=== PATIENT | female | born 1970 | race Caucasian/White ===

== ENCOUNTER → 2020-11-12 11:02 | Outpatient (CLI) | payer OTHER, SELFPAY ==
--- NOTE | ~2020-11-12 | DEXA_ITS ---
Bone Density Report Name: Giana Wilkerson Age: 49 Sex: Female Ethnicity: White Date of : 1970 Indication: postmenopausal; hysterectomy; Referring Provider: Dawna, Sumi Study: Bone densitometry was performed. Exam Date: November 12, 2020 Accession number: [id number] Bone Density: Region BMD T-score Z-score Classification AP Spine (L1-L4) 0.878 -1.5 -0.8 Osteopenia Femoral Neck (Left) 0.622 -2.0 -1.3 Osteopenia Total Hip (Left) 0.880 -0.5 -0.1 Normal Femoral Neck (Right) 0.726 -1.1 -0.4 Osteopenia Total Hip (Right) 0.939 0.0 0.4 Normal Total Hip Mean 0.910 -0.3 0.2 Normal World Health Organization criteria for BMD impression classify patients as: Normal (T-score at or above -1.0), Osteopenia (T-score between -1.0 and -2.5), or Osteoporosis (T-score at or below -2.5). 10-year Fracture Risk: FRAX not reported because: Treated for osteoporosis Clinical Information Provided by Patient: Is being treated for osteoporosis Has used the following medications: Evista (i.e. raloxifene), Calcium Has the following medical conditions: Hysterectomy Patient maximum height was 62 Menopause Age: 40 No regular weight bearing exercise Drinks caffeinated beverages Onset of menses at age 13 Number of children 2 Impression: The patient has low bone mass, based on the Left Femoral Neck T-score. Discussion: It is important to ask patients whether they are taking their medications and to encourage continued and appropriate compliance with their osteoporosis therapies to reduce fracture risk. It is also important to review their risk factors and encourage appropriate calcium and vitamin D intakes, exercise, fall prevention and other lifestyle measures. Follow-Up: Consider a repeat BMD and Vertebral Fracture Assessment (VFA) exam in 2 years or sooner if medically necessary, to reassess this patient's status. Reported by: LEAH on 11/12/2020 11:20:00 AM. Reviewed, dictated and finalized at location [facility] LONGORIA
== END ==
PROVIDERS: PCP Registered Nurse; Visit Provider Registered Nurse
DX: M85.88 Other specified disorders of bone density and structure, other site (principal); M85.852 Other specified disorders of bone density and structure, left thigh; M85.851 Other specified disorders of bone density and structure, right thigh
CPT/HCPCS: 77080

== ENCOUNTER → 2021-04-25 08:54 | Outpatient (CLI) | payer OTHER, SELFPAY ==
--- NOTE | ~2021-04-25 | XR_ITS ---
EXAMINATION: XR chest 2V 04/25/2021 09:16 INDICATION: Aspiration pneumonia PROCEDURE: 2 view chest COMPARISON: 06/25/2016 FINDINGS: The lungs are clear. The cardiomediastinal silhouette is within normal limits. There are no pleural effusions. There is no pneumothorax suspected. IMPRESSION: 1: NO ACUTE CARDIOPULMONARY DISEASE. Reviewed, dictated and finalized at location A. H ADJUSTER
== END ==
PROVIDERS: PCP Registered Nurse; Visit Provider Registered Nurse
DX: J69.0 Pneumonitis due to inhalation of food and vomit (principal)
CPT/HCPCS: 71046

== ENCOUNTER 2021-06-22 11:08 | Emergency (ER) | payer OTHER, SELFPAY ==
[2021-06-22 11:47] VITALS: BP 120/69; PULSE 83; RESP 16; TEMP 37.1; O2SAT 99
--- NOTE | 2021-06-22 12:04 | ED.URI ---
HPI - URI/Sore Throat General Chief Complaint: Upper Respiratory Infection Stated Complaint: Fever,Sore Throat,Fatigue Time Seen by Provider: 06/22/21 12:05 Source: patient and RN notes reviewed Mode of arrival: ambulatory Limitations: no limitations History of Present Illness HPI Narrative: 50-year-old female presented for complaint of headache, body ache, fever and sore throat for 2 days. Endorses fever of 100-102. Endorses occasional nonproductive cough. Denies chest pain, shortness of breath, wheezing, nausea, vomiting, diarrhea. She is not vaccinated for Covid. She has been taking Tylenol for symptoms. Related Data Home Medications Medication Instructions Recorded Confirmed doxycycline hyclate 06/22/21 escitalopram oxalate mg 06/22/21 raloxifene [Evista] 60 mg PO DAILY 06/22/21 06/22/21 Allergies Allergy/AdvReac Type Severity Reaction Status Date / Time Sulfa (Sulfonamide Allergy Mild Rash Verified 06/22/21 11:38 Antibiotics) amoxicillin Allergy Unknown Diarrhea Verified 06/22/21 11:38 morphine AdvReac Nausea and Verified 06/22/21 11:38 Vomiting Review of Systems Review of Systems: CONSTITUTIONAL: Endorses malaise, chills, sweats, fever. EYES: Denies visual changes, redness, or discharge. ENT: Reports rhinorrhea, congestion, sinus pain, otalgia and sore throat. CARDIOVASCULAR: Denies chest pain, palpitations, or edema. RESPIRATORY: Reports cough, post nasal drainage. Denies dyspnea. GASTROINTESTINAL: Denies abdominal pain, nausea, vomiting, diarrhea SKIN: Denies rash or itching. MUSCULOSKELETAL: Denies myalgia. NEUROLOGIC: Denies headache. PMFSH Comments At time of signature, I have reviewed and agree with nursing past medical, surgical, social and family history unless otherwise noted. Please see nursing chart for further information. There is no relevant family history pertinent to the presenting complaint Exam Narrative: GENERAL: Ill-appearing, nontoxic no acute distress. HEAD: Normocephalic EYES: PERRLA, conjunctivae clear ENT: Mucous membranes moist. TM pearly yañez with dull light reflex bilaterally; no tragal tenderness. Oropharynx erythematous without lesions. Tonsils without exudate, no drooling, no hoarseness, no trismus, uvula midline. NECK: Supple. No lymphadenopathy CHEST: Clear to auscultation, breath sounds equal. No wheezing, rhonchi, rales, or stridor. No respiratory distress, speaks in full sentences. HEART: Regular rate and rhythm. No murmur heard. SKIN: Warm, dry, no rash. NEURO: Alert and oriented x3. PSYCH: Normal mood and affect Course Course Emergency Course: Covid positive Patient is aware of diagnosis, understands and agrees to treatment plan. Anticipatory guidance given. Patient agrees to follow-up as directed and is aware of reasons to seek care at the emergency department. Portions of this record may have been created with voice recognition software Level of Care: Express Care Visit Vital Signs Vital signs: Vital Signs Temperature 98.8 F 06/22/21 11:47 Pulse Rate 83 06/22/21 11:47 Respiratory Rate 16 06/22/21 11:47 Blood Pressure 120/69 06/22/21 11:47 Pulse Oximetry 99 06/22/21 11:47 Temperature 98.8 F 06/22/21 11:47 Pulse Rate 83 06/22/21 11:47 Respiratory Rate 16 06/22/21 11:47 Blood Pressure 120/69 06/22/21 11:47 Pulse Oximetry 99 06/22/21 11:47 Reviewed MDM - URI/Sore Throat Differential Diagnosis Differential diagnosis: Likely upper respiratory infection, viral infection and pharyngitis Lab Data Attestation: I reviewed the patient's lab results. Labs: Strep Screen Presumptive Negative *(Reference Range: Negative)* Discharge Plan Discharge Clinical Impression: COVID-19 Patient Disposition: Home, Self-Care Condition: Stable Instructions: Antibiotic Form Additional Instructions: Your rapid COVID test was positive today. The follow
== END 2021-06-22 12:27 | disposition home or self-care (01) ==
PROVIDERS: Emergency Provider Nurse Practitioner Family; PCP Registered Nurse
DX: U07.1 COVID-19 (principal); Z98.84 Bariatric surgery status
CPT/HCPCS: 87081; 87426; 87880; 99213; C9803; G0463

== ENCOUNTER 2022-02-23 10:36 | Emergency (ER) | payer OTHER, SELFPAY ==
[2022-02-23 11:12] VITALS: BP 120/72; PULSE 63; RESP 16; TEMP 36.4; O2SAT 100
--- NOTE | 2022-02-23 11:52 | ED.GENADULT ---
HPI - General Adult General Chief complaint: Wound/Laceration Stated complaint: laceration History of Present Illness HPI narrative: Mrs Wilkerson is a pleasant 51 y/o female. PMHx GERD, OA. [facility] with acute complaints of LT thumb tip laceration, accidentally cut with vegetable knife immediately [employer]. She tells me that she was cutting a Zucchini at home, RT hand dominant, and her RT hand slipped causing left sided laceration. No bony pain or trauma. Not on any active anticoagulation regimen, bleeding controlled. Non-diabetic. Last Tetanus was updated 2 months ago according to client. No concern for FB has been identified. She is without additional acute c/o upon PE. Related Data Home Medications Medication Instructions Recorded Confirmed escitalopram oxalate 20 mg tablet 20 mg PO DAILY 06/22/21 02/23/22 raloxifene 60 mg tablet (Evista) 60 mg PO DAILY 06/22/21 02/23/22 Allergies Allergy/AdvReac Type Severity Reaction Status Date / Time Sulfa (Sulfonamide Allergy Mild Rash Verified 02/23/22 11:40 Antibiotics) amoxicillin Allergy Unknown Diarrhea Verified 02/23/22 11:40 morphine AdvReac Nausea and Verified 02/23/22 11:40 Vomiting NSAIDS (Non-Steroidal AdvReac Other Verified 02/23/22 11:40 Anti-Inflamma Review of Systems Review of Systems: SKIN: Laceration LT thumb. MUSCULOSKELETAL: Denies joint pain. NEUROLOGIC: Denies numbness, or focal weakness. REMAINING ROS REVIEWED: NEGATIVE. Exam Narrative: GENERAL: This is a well-nourished, well-developed adult, in no apparent distress. HEAD: normocephalic EYES: Sclera clear/white. CARDIOVASCULAR: Regular rate and rhythm. Radial pulses strong, Cap refill brisk all digits LUE. SPO2 99& on affected digit. RESPIRATORY: Clear to auscultation. GASTROINTESTINAL: Abdomen soft. SKIN: With 1 cm linear laceration to LT thumb tip pad. No nail involvement. No FB has been identified. Bleeding is controlled. NEURO: No focal neurologic deficits. Good sensation and discrimination LUE. EXTREMITIES: Negative. No LUE/LT digit bony tenderness or deformity. ROM intact. Able to flex and extend at all sites on affected digit, No laxity. Course Course Level of Care: Express Care Visit Vital Signs Vital signs: Vital Signs Temperature 36.4 C 02/23/22 11:12 Pulse Rate 63 02/23/22 11:12 Respiratory Rate 16 02/23/22 11:12 Blood Pressure 120/72 02/23/22 11:12 Pulse Oximetry 100 02/23/22 11:12 Oxygen Delivery Room Air 02/23/22 11:12 Temperature 36.4 C 02/23/22 11:12 Pulse Rate 63 02/23/22 11:12 Respiratory Rate 16 02/23/22 11:12 Blood Pressure 120/72 02/23/22 11:12 Pulse Oximetry 100 02/23/22 11:12 Oxygen Delivery Room Air 02/23/22 11:12 Procedures Laceration Laceration 1: Date: 02/23/22 Time: 12:00 Site: upper extremity (LT thumb ) Side (If applicable): left Size (cm): 1 Description: linear, clean and other (No nail involvement. ) Depth: simple, single layer Local Anesthetic: lidocaine 1% (0.5 ml) Pre-repair: wound explored, irrigated and other (No FB. ) ====== Skin Level ====== Skin layer closed with: nylon Size (cm): 3-0 Number of sutures: 3 Technique: simple, interrupted ====== Subcutaneous Layer ====== ====== Muscle Layer ====== ====== Tendon Layer ====== Dressing: Client tolerated procedure well, no issues. Covered w/sterile dry gauze and Kerlix. Medical Decision Making MDM Narrative Medical decision making narrative: -No neurovascular deficits. SPO 2 99 % on affected digit. -RT Hand Dominant, non-diabetic, not on anticoagulants, bleeding controlled. -No nail involvement, No FB. -Simple single layer laceration repair has been completed w/o difficulty-Refer to procedure notes. -DC to home stable. -OP Wound & Suture care has been reviewed. -PC
== END 2022-02-23 12:16 | disposition home or self-care (01) ==
PROVIDERS: Emergency Provider Nurse Practitioner Adult Health; PCP Registered Nurse
DX: S61.012A Laceration without foreign body of left thumb without damage to nail, initial encounter (principal); W26.0XXA Contact with knife, initial encounter
CPT/HCPCS: 12001; 99212; G0463

== ENCOUNTER 2022-02-26 18:44 | Emergency (ER) | payer OTHER, SELFPAY ==
--- NOTE | 2022-02-26 18:46 | ED.WOUNDLAC ---
HPI - Wound/Laceration General Chief Complaint: Wound/Laceration Stated Complaint: Thumb Lt Hand Time Seen by Provider: 02/26/22 18:59 Source: patient and RN notes reviewed Mode of arrival: ambulatory Limitations: no limitations History of Present Illness HPI narrative: 51-year-old female presents with concern for suture failure. She reports she had sutures placed on Wednesday on the first digit of her left hand on the palmar aspect. She reports Wednesday 2 of the sutures became untied, on Wednesday the last suture became untied. She reports she tried to use [id number] liquid bandage but it did not help. She reports the wound continued to bleed. She denies any surrounding redness, swelling, drainage from the wound Related Data Home Medications Medication Instructions Recorded Confirmed escitalopram oxalate 20 mg tablet 20 mg PO DAILY 06/22/21 02/26/22 raloxifene 60 mg tablet (Evista) 60 mg PO DAILY 06/22/21 02/26/22 Allergies Allergy/AdvReac Type Severity Reaction Status Date / Time Sulfa (Sulfonamide Allergy Mild Rash Verified 02/26/22 18:46 Antibiotics) amoxicillin Allergy Unknown Diarrhea Verified 02/26/22 18:46 morphine AdvReac Nausea and Verified 02/26/22 18:46 Vomiting NSAIDS (Non-Steroidal AdvReac Other Verified 02/26/22 18:46 Anti-Inflamma Review of Systems Review of Systems: CONSTITUTIONAL: Denies malaise, chills, sweats, or fever. SKIN: Reports laceration to the first digit of the left hand with sutures that fell out. She denies any wound redness, swelling, drainage. She reports the wound continues to bleed on and off MUSCULOSKELETAL: Denies muscle skeletal pain NEUROLOGIC: Denies numbness, weakness All systems reviewed & are unremarkable except as noted in HPI and below PMFSH Comments At time of signature, agree with nursing past medical, surgical, social and family history. There is no relevant family history pertinent to the presenting complaint Exam Narrative: GENERAL: Well-appearing, well-nourished, and in no acute distress. HEAD: Normocephalic, atraumatic. EYES: PERRLA, conjunctivae clear ENT: Mucous membranes moist. NECK: Supple. No lymphadenopathy CHEST: Clear to auscultation. No respiratory distress. HEART: Regular rate and rhythm. SKIN: Warm, dry. Approximately 1 cm curved laceration noted to the distal first digit of the left hand, wound is well approximated, not gaping, no sutures noted to the wound NEURO: Alert and oriented x3. PSYCH: Normal mood and affect Course Course Emergency Course: Patient is aware of diagnosis, understands and agrees to treatment plan. Anticipatory guidance given. Patient agrees to follow-up as directed and is aware of reasons to seek care at the emergency department. Portions of this record may have been created with voice recognition software Level of Care: Express Care Visit Vital Signs Vital signs: Reviewed. Procedures Laceration Laceration 1: Date: 02/26/22 Time: 19:07 Site: upper extremity Size (cm): 1 Description: other (C-shaped) Depth: simple, single layer (Wound well approximated, not gaping, not able to pull the wound apart, however there is bleeding noted) Pre-repair: other (Cleaned with premature) ====== Skin Level ====== Skin layer closed with: dermabond ====== Subcutaneous Layer ====== ====== Muscle Layer ====== ====== Tendon Layer ====== MDM - Wound/Laceration MDM Narrative Medical decision making narrative: Exam findings show no acute concerns or changes; patient is non-toxic appearing and is in no distress. Patient is appropriate for outpatient treatment and follow-up. Differential Diagnosis Differential diagnosis: Likely laceration, abrasion and avulsion of skin Critical Care Time Critical Care Time Critical Care Time: No Discharge Plan Discharge Clinical Impression: Finger laceration Patient Disposition: Home, S
[2022-02-26 18:51] VITALS: BP 115/66; PULSE 71; RESP 18; TEMP 36.8; O2SAT 100
== END 2022-02-26 19:15 | disposition home or self-care (01) ==
PROVIDERS: Emergency Provider Nurse Practitioner; PCP Registered Nurse
DX: S61.012D Laceration without foreign body of left thumb without damage to nail, subsequent encounter (principal); X58.XXXD Exposure to other specified factors, subsequent encounter; F41.9 Anxiety disorder, unspecified; Z98.84 Bariatric surgery status; Z86.16 Personal history of COVID-19
CPT/HCPCS: 12001; 99212; G0463

== ENCOUNTER 2022-05-01 13:12 | Emergency (ER) | payer OTHER, SELFPAY ==
[2022-05-01 13:28] VITALS: BP 115/64; PULSE 77; RESP 16; TEMP 36.9; O2SAT 100
--- NOTE | 2022-05-01 14:07 | ED.URI ---
HPI - URI/Sore Throat General Chief Complaint: Upper Respiratory Infection Stated Complaint: Cough,Body Aches,Runny Nose Time Seen by Provider: 05/01/22 14:07 Source: patient and RN notes reviewed Mode of arrival: ambulatory Limitations: no limitations History of Present Illness HPI Narrative: [age] year female presents complaining of headache, body aches, sinus pressure/congestion, cough. onset yesterday. She denies shortness of breath, wheezing, nausea, vomiting or diarrhea, fever/chills. She is taking [id number]-suk-rjyrfet medications for symptoms. 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 MD elicited complaint: cough Related Data Home Medications Medication Instructions Recorded Confirmed escitalopram oxalate 20 mg tablet 20 mg PO DAILY 06/22/21 02/26/22 raloxifene 60 mg tablet (Evista) 60 mg PO DAILY 06/22/21 02/26/22 Allergies Allergy/AdvReac Type Severity Reaction Status Date / Time Sulfa (Sulfonamide Allergy Mild Rash Verified 02/26/22 18:46 Antibiotics) amoxicillin Allergy Unknown Diarrhea Verified 02/26/22 18:46 morphine AdvReac Nausea and Verified 02/26/22 18:46 Vomiting NSAIDS (Non-Steroidal AdvReac Other Verified 02/26/22 18:46 Anti-Inflamma Review of Systems Review of Systems: CONSTITUTIONAL: denies malaise, chills, sweats, fever EYES: Denies visual changes, redness, or discharge ENT: Reports rhinorrhea, congestion, sinus pain, otalgia, sore throat CARDIOVASCULAR: Denies chest pain, palpitations, edema RESPIRATORY: Reports cough, post nasal drainage. Denies dyspnea GASTROINTESTINAL: Denies abdominal pain, nausea, vomiting, diarrhea MUSCULOSKELETAL: Endorses myalgia Exam Narrative: GENERAL: well-appearing EYES: PERRLA, conjunctivae clear ENT: Mucous membranes moist. TMs pearly yañez with dull light reflex bilaterally; no tragal tenderness. Oropharynx erythematous without lesions or exudate, no drooling, no hoarseness, no trismus, uvula midline. CHEST: Clear to auscultation, breath sounds equal. HEART: Regular rate and rhythm. No murmur heard. SKIN: Warm, dry, no rash. NEURO: Alert and oriented x3. PSYCH: Normal mood and affect Course Course Emergency Course: Patient is aware of diagnosis, understands and agrees to treatment plan. Anticipatory guidance given. Patient agrees to follow-up as directed and is aware of reasons to seek care at the emergency department. Portions of this record may have been created with voice recognition software Level of Care: Express Care Visit Vital Signs Vital signs: Vital Signs Temperature 98.5 F 05/01/22 13:28 Pulse Rate 77 05/01/22 13:28 Respiratory Rate 16 05/01/22 13:28 Blood Pressure 115/64 05/01/22 13:28 Pulse Oximetry 100 05/01/22 13:28 Oxygen Delivery Room Air 05/01/22 13:28 Temperature 98.5 F 05/01/22 13:28 Pulse Rate 77 05/01/22 13:28 Respiratory Rate 16 05/01/22 13:28 Blood Pressure 115/64 05/01/22 13:28 Pulse Oximetry 100 05/01/22 13:28 Oxygen Delivery Room Air 05/01/22 13:28 reviewed MDM - URI/Sore Throat MDM Narrative Medical decision making narrative: Flu and COVID negative. Advised supportive measures and signs/symptoms to go to the ER. Pt is appropriate for outpt treatment and f/u. Differential Diagnosis Differential diagnosis: Likely upper respiratory infection, sinusitis and viral infection Lab Data Labs: Influenza A Screen Negative Reference Range: Negative Influenza B Screen Negative Reference Range: Negative Discharge Plan Discharge Clinical Impression: Upper respiratory infection Patient Disposition: Home, Self-Care Condition: Stable Instructions: Upper Respiratory Infection (ED) Additional Instructions: COVID and flu negative Recommend Flonase spray and Zyrtec (or Claritin/Nan) o
== END 2022-05-01 14:47 | disposition home or self-care (01) ==
PROVIDERS: Emergency Provider Nurse Practitioner Family; PCP Registered Nurse
DX: J06.9 Acute upper respiratory infection, unspecified (principal); Z20.822 Contact with and (suspected) exposure to COVID-19
CPT/HCPCS: 87426; 87804; 99213; C9803; G0463